=== PATIENT | male | born 1965 | race African-American/Black ===

== ENCOUNTER 2018-06-28 02:21 | Inpatient (IN) | payer MEDICAID, OTHER ==
[~2018-06-28] VITALS: Ht 177.8 cm; Wt 80.7 kg
[2018-06-28] MEDS ORDERED: SODIUM CHLORIDE 0.9% 1,000 ML IV ONE (09:32)
[2018-06-28 10:00] LABS: BASOPHILS % 0.7 % (0.0-2.0); EOSINOPHILS % 0.7 % (0.0-5.0); HEMATOCRIT. 33.8 % (42.0-52.0); HEMOGLOBIN. 11.2 g/dL (14.0-18.0); LYMPHOCYTES % 27.4 % (20.0-50.0); MEAN CORPUSCULAR HEMOGLOBIN 28.8 pg (28.0-32.0); MEAN PLATELET VOLUME 6.6 fl (7.4-10.4); MONOCYTES % 5.8 % (2.0-8.0); NEUTROPHILS % 65.4 % (40.0-76.0); PLATELET 332 x1000/uL (130-400); RED BLOOD CELL COUNT 3.88 mill/uL (4.7-6.1); RED CELL DISTRIBUTION WIDTH 12.6 % (11.6-14.6)
[2018-06-28 10:08] LABS: CHLORIDE 105 mEq/L (98-107)
[2018-06-28 10:09] LABS: PROTHROMBIN TIME 10.2 sec (9.1-11.1)
[2018-06-28 14:26] LABS: TOTAL IRON BINDING CAPACITY 293 ug/dL (250-450)
[2018-06-28 18:10] LABS: HEMATOCRIT 29.1 % (42.0-52.0); HEMOGLOBIN 9.7 g/dL (14.0-18.0)
[2018-06-28] MEDS ORDERED: DIATR MEGLU/DIATRIZOATE SOLN 30ML ONE (22:59)
[2018-06-28] MEDS ORDERED: DIATR MEGLU/DIATRIZOATE SOLN 30ML PO SCH (23:12)
[2018-06-29] VITALS (7 sets, daily range): BP systolic 106–130; BP diastolic 67–80
[2018-06-29] MEDS ORDERED: ONDANSETRON HCL 4MG/2ML INJ IV PRN (01:30)
[2018-06-29] MEDS ORDERED: PANTOPRAZOLE SODIUM 40 MG/VIAL IV SCH ×2 (01:30→23:10)
[2018-06-29 01:43] LABS: HEMATOCRIT 29.1 % (42.0-52.0); HEMOGLOBIN 9.7 g/dL (14.0-18.0); MEAN CORPUSCULAR VOLUME 87.3 fL (80.0-94.0); PLATELET 279 x1000/uL (130-400); RED BLOOD CELL COUNT 3.34 mill/uL (4.7-6.1); RED CELL DISTRIBUTION WIDTH 12.4 % (11.6-14.6)
[2018-06-29] MEDS: DEXT 5%/0.45% NACL 1000ML 1,000 ML IV SCH ×3 (02:17→17:33)
[2018-06-29] MEDS ORDERED: HYDR-4001 PO (04:30)
[2018-06-29 06:23] LABS: HEMATOCRIT 26.8 % (42.0-52.0); HEMOGLOBIN 8.9 g/dL (14.0-18.0); MEAN CORPUSCULAR HEMOGLOBIN 28.8 pg (28.0-32.0); MEAN CORPUSCULAR VOLUME 86.9 fL (80.0-94.0); PLATELET 278 x1000/uL (130-400); RED BLOOD CELL COUNT 3.08 mill/uL (4.7-6.1); RED CELL DISTRIBUTION WIDTH 12.3 % (11.6-14.6)
[2018-06-29] MEDS: PANTOPRAZOLE SODIUM 40 MG/VIAL IV SCH (09:12)
[2018-06-29] MEDS ORDERED: HYDROCODONE/ACETAMINOPHEN 5/325MG TABLET PO PRN (12:00)
[2018-06-29] MEDS ORDERED: ACETAMINOPHEN 650MG/20.3ML UDC PO PRN (12:00)
[2018-06-29] MEDS ORDERED: ACETAMINOPHEN 650MG SUPP PR PRN (12:00)
[2018-06-29 15:24] LABS: HEMATOCRIT 27.3 % (42.0-52.0); HEMOGLOBIN 9.3 g/dL (14.0-18.0); MEAN CORPUSCULAR HEMOGLOBIN 29.6 pg (28.0-32.0); MEAN CORPUSCULAR VOLUME 87.2 fL (80.0-94.0); PLATELET 277 x1000/uL (130-400); RED BLOOD CELL COUNT 3.13 mill/uL (4.7-6.1); RED CELL DISTRIBUTION WIDTH 12.6 % (11.6-14.6)
[2018-06-29 15:31] LABS: CHLORIDE 107 mEq/L (98-107)
[2018-06-29] MEDS: BISACODYL 5MG TABLET PO SCH ×2 (17:31→21:11)
[2018-06-29] MEDS: METOCLOPRAMIDE HCL 10MG/2ML VIAL IV SCH ×2 (17:32→21:11)
[2018-06-29] MEDS: SORBITOL 70% SOLN 30ML PO SCH ×2 (17:33→21:11)
[2018-06-29 21:27] LABS: HEMOGLOBIN 9.1 g/dL (14.0-18.0); MEAN CORPUSCULAR HEMOGLOBIN 28.7 pg (28.0-32.0); MEAN CORPUSCULAR VOLUME 87.9 fL (80.0-94.0); PLATELET 291 x1000/uL (130-400); RED BLOOD CELL COUNT 3.18 mill/uL (4.7-6.1); RED CELL DISTRIBUTION WIDTH 12.4 % (11.6-14.6)
[2018-06-30 00:32] VITALS: BP 104/68
[2018-06-30] MEDS: SORBITOL 70% SOLN 30ML PO SCH (00:47)
[2018-06-30] MEDS: DEXT 5%/0.45% NACL 1000ML 1,000 ML IV SCH ×3 (00:53→09:30)
[2018-06-30 04:00] VITALS: BP 116/79
[2018-06-30 06:50] LABS: CHLORIDE 111 mEq/L (98-107)
[2018-06-30 06:52] LABS: BASOPHILS % 0.9 % (0.0-2.0); EOSINOPHILS % 1.2 % (0.0-5.0); HEMATOCRIT. 29.8 % (42.0-52.0); HEMOGLOBIN. 9.8 g/dL (14.0-18.0); LYMPHOCYTES % 41.4 % (20.0-50.0); MEAN CORPUSCULAR HEMOGLOBIN 28.9 pg (28.0-32.0); MEAN CORPUSCULAR VOLUME 87.9 fL (80.0-94.0); MEAN PLATELET VOLUME 6.8 fl (7.4-10.4); MONOCYTES % 9.1 % (2.0-8.0); NEUTROPHILS % 47.4 % (40.0-76.0); PLATELET 321 x1000/uL (130-400); RED BLOOD CELL COUNT 3.39 mill/uL (4.7-6.1); RED CELL DISTRIBUTION WIDTH 12.4 % (11.6-14.6)
[2018-06-30 08:00] VITALS: BP 109/65
[2018-06-30] MEDS: PANTOPRAZOLE SODIUM 40 MG/VIAL IV SCH (08:28)
[2018-06-30 12:00] VITALS: BP 104/74
[2018-06-30] MEDS ORDERED: SIMETHICONE 40 MG/0.6 ML 30ML ONE (15:19)
[2018-06-30] MEDS ORDERED: BACTERIOSTATIC SODIUM CHLORIDE 0.9% 30ML VIAL IJ ONE (15:19)
[2018-06-30] MEDS ORDERED: MIDAZOLAM HCL 5 MG/5 ML VIAL IV PRN (17:22)
[2018-06-30] MEDS ORDERED: MIDAZOLAM HCL 5 MG/5 ML VIAL ONE (17:23)
[2018-06-30] MEDS ORDERED: FENTANYL CITRATE/PF 50MCG/ML 2ML VIAL IV PRN (17:23)
[2018-06-30] MEDS ORDERED: DIPHENHYDRAMINE 50MG/ML VIAL ONE (17:23)
[2018-06-30] MEDS ORDERED: FENTANYL CITRATE/PF 50MCG/ML 2ML VIAL ONE (17:24)
[2018-06-30] MEDS ORDERED: DIPHENHYDRAMINE 50MG/ML VIAL IV ONE (17:30)
[2018-06-30 20:00] VITALS: BP 120/64
[2018-07-01] VITALS: BP 110/60
[2018-07-01] MEDS: DEXT 5%/0.45% NACL 1000ML 1,000 ML IV SCH (02:11)
[2018-07-01 04:00] VITALS: BP 101/62
[2018-07-01] MEDS: PANTOPRAZOLE SODIUM 40 MG/VIAL IV SCH (09:02)
[2018-07-01 09:43] LABS: EOSINOPHILS % 2.2 % (0.0-5.0); HEMATOCRIT. 26.7 % (42.0-52.0); HEMOGLOBIN. 8.9 g/dL (14.0-18.0); MEAN CORPUSCULAR HEMOGLOBIN 29.4 pg (28.0-32.0); MEAN CORPUSCULAR VOLUME 88.4 fL (80.0-94.0); MEAN PLATELET VOLUME 6.8 fl (7.4-10.4); MONOCYTES % 7.2 % (2.0-8.0); NEUTROPHILS % 54.6 % (40.0-76.0); PLATELET 289 x1000/uL (130-400); RED BLOOD CELL COUNT 3.02 mill/uL (4.7-6.1); RED CELL DISTRIBUTION WIDTH 12.2 % (11.6-14.6)
[2018-07-01 09:55] LABS: CHLORIDE 109 mEq/L (98-107)
[2018-07-01 12:11] VITALS: BP 125/80
== END 2018-07-01 12:33 | disposition home or self-care (01) | DRG 241 ==
LOC: ER 02:22 → 6WST 10:40 → EDBEDREQ 10:42 → ENRESERV 20:50
PROVIDERS: ADMIT Internal Medicine; ATTEND Internal Medicine
PROC: 0DJD8ZZ Inspection of Lower Intestinal Tract, Via Natural or Artificial Opening Endoscopic (ICD-10-PCS; principal; 2018-07-01)
PROC: 0DB68ZX Excision of Stomach, Via Natural or Artificial Opening Endoscopic, Diagnostic (ICD-10-PCS; 2018-07-01)
DX: K29.71 Gastritis, unspecified, with bleeding (principal); K57.31 Diverticulosis of large intestine without perforation or abscess with bleeding; N28.1 Cyst of kidney, acquired; D64.9 Anemia, unspecified; K40.20 Bilateral inguinal hernia, without obstruction or gangrene, not specified as recurrent; N40.0 Benign prostatic hyperplasia without lower urinary tract symptoms; I10 Essential (primary) hypertension; K46.9 Unspecified abdominal hernia without obstruction or gangrene; Z80.0 Family history of malignant neoplasm of digestive organs; Z87.891 Personal history of nicotine dependence; Z90.49 Acquired absence of other specified parts of digestive tract
CPT/HCPCS: 36415; 71045; 74176; 80048; 82378; 82728; 83540; 83550; 84153; 85014; 85018; 85027; 86850; 86900; 88305; 88312; 88313; 93005; 99152; C9113; J1200; J2250; J2765; J3010; J3490; J7030; Q9963; G0103; G0500